=== PATIENT | male | born 1975 | race Caucasian/White ===

== ENCOUNTER 2016-10-01 08:03 | Day surgery (SDC) | payer OTHER ==
[~2016-10-01] VITALS: Ht 175.3 cm; Wt 76.3 kg
[2016-10-01] MEDS ORDERED: OMEP40CA6 PO (08:47)
[2016-10-01 08:52] VITALS: Ht 175.3 cm; Wt 76.3 kg
[2016-10-01 08:58] VITALS: BP 107/71; PULSE 59; RESP 18
[2016-10-01] MEDS ORDERED: LIDOCAINE 4% SOLUTION 50 ML BTL ONE (09:07)
[2016-10-01] MEDS ORDERED: FENTAnyl 50 MCG/ML VIAL ONE ×2 (10:01)
[2016-10-01] MEDS ORDERED: MIDAZOLAM 1 MG/ML 2 ML INJ ONE ×3 (10:01)
[2016-10-01 10:28] VITALS: BP 105/58; PULSE 72; RESP 12
--- NOTE | 2016-10-01 18:08 | GILP ---
DATE OF PROCEDURE: PROCEDURE: Esophagogastroduodenoscopy. PREOPERATIVE DIAGNOSIS: The patient presenting with history of chronic abdominal discomfort on an i ntermittent basis and history of heartburn as well which is relieved by omeprazole. He also has a h istory of hematemesis, rule out peptic ulcer disease, rule out esophagitis. POSTOPERATIVE DIAGNOSES: 1. Irregular gastroesophageal junction. 2. 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 Stomach showed e vidence of erythema in the fundus and the antrum. Biopsies were done to rule out Helicobacter pylor i infection. Duodenum showed minimal duodenitis. DESCRIPTION OF PROCEDURE: After informed written consent was obtained, the patient was asked to lie on the left lateral side. Intravenous anesthesia was given by the nurse which included 3 mg Versed , 75 mcg fentanyl. When the patient became somnolent, Olympus video upper endoscope was introduced into the oropharynx, then into the esophagus. Esophagus showed superficial nodular mucosa. 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 GE junction showed evidence of irregularity with no ulcers, no neoplasm. Scope at this time was advanced into the stomach. A few areas of erythema noted in the lesser curvature, some in the antrum as well. Minimal gastritis noted in the fundus. Biopsy was do ne from the antrum, the lesser curvature and the fundus to rule out H. pylori infection. No ulcer d isease noted as described in the past. Duodenum showed evidence of erythema in the bulb and the pos tbulbar area with no ulcers, no neoplasm up to the end of the third portion. Endoscope at this time was withdrawn. No additional abnormalities detected, and the procedure was terminated. PLAN: Recommend continue Nexium 40 mg a day in the morning. Dictated By: DIRK ZAVALA/RASHEED Conf#: [id number] DID#: [id number] CC: Mary;*EndCC*
--- NOTE | 2016-10-02 07:09 | GILP ---
DATE OF PROCEDURE: PROCEDURE: Colonoscopy. PREOPERATIVE DIAGNOSES: The patient has history of colon polyps in the past. Procedure performed t o rule out recurrence of colon polyps, rule out colon cancer. POSTOPERATIVE DIAGNOSES: 1. Isolated diverticulum noted in the descending colon. 2. Minimal external hemorrhoids. DESCRIPTION OF PROCEDURE: After the informed written consent was obtained, the patient was asked to lie on the left lateral side. Intravenous anesthesia was given which included 6 mg Versed and 125 mcg of fentanyl. Scope would not advance all the way to the cecum. Hence with the help of upper en doscope, cecum was reached. One isolated diverticulum was noted, but no polyps, no carcinoma or any other abnormality detected. Ileocecal valve and appendiceal opening were identified. On the way o ut, retroflexion was performed. No internal hemorrhoids noted. When the scope was withdrawn, minim al external hemorrhoids were noted and the procedure was terminated. PLAN: Recommend repeat colonoscopy in 5 years. Dictated By: DIRK ZAVALA/RASHEED Conf#: [id number] DID#: [id number]
== END 2016-10-01 14:27 | disposition home or self-care (01) ==
LOC: GIL 08:03
PROVIDERS: ATTEND Internal Medicine Gastroenterology
DX: K29.50 Unspecified chronic gastritis without bleeding (principal); K57.90 Diverticulosis of intestine, part unspecified, without perforation or abscess without bleeding; K64.4 Residual hemorrhoidal skin tags; Z86.010 Personal history of colon polyps
CPT/HCPCS: 43239; 45378; 88305; 88312; J2250; J3010; Z7610